=== PATIENT | male | born 2000 | race Caucasian/White ===

== ENCOUNTER 2020-04-03 12:58 | Emergency (ER) | payer OTHER ==
[~2020-04-03] VITALS: Ht 182.8 cm; Wt 90.7 kg
[~2020-04-03 12:58] MED LIST: AMOXIL250 MG PO; ANAPROX DS550 MG PO; AUGMENTIN ES-6050 ML PO; BACTRIM DS 8001 TA1 PO; CLARITIN10 MG PO; CORDROL20 MG PO; CYCLOBENZAPRINE5 M3 PO; FLONASE 0.05% 121 EA; FLOVENT0.044 MG/A; IBU400 MG PO; IODINE; MOTRIN400 MG PO; MOTRIN600 MG PO; Motrin,Rufen800 MG PO; Orphenadrine C100 MG PO; PHENERGAN W/DM120 ML PO; SINGULAIR10 MG PO; ULTRAM50 MG PO; VENTOLIN H0.09 MG/AC INH; VENTOLIN0.09 MG/AC; VENTOLIN0.09 MG/AC IH; VIBRAMYCIN100 MG PO; ZYRTEC
[2020-04-03] MEDS ORDERED: CEPHALEXIN500 M1 PO (13:45)
== END 2020-04-03 13:56 | disposition home or self-care (01) ==
LOC: ED 12:58
DX: H01.004 Unspecified blepharitis left upper eyelid (principal); J45.909 Unspecified asthma, uncomplicated; Z91.048 Other nonmedicinal substance allergy status; Z79.899 Other long term (current) drug therapy; Z86.14 Personal history of Methicillin resistant Staphylococcus aureus infection; Z87.891 Personal history of nicotine dependence